=== PATIENT | female | born 1980 | race Caucasian/White ===

== ENCOUNTER 2018-03-29 16:54 | Emergency (ER) | payer BC, OTHER ==
--- NOTE | 2018-03-29 17:06 | PDOC ---
Rapid Medical Evaluation Chief Complaint: Pain, Acute Time Seen by Provider: 03/29/18 17:03 Medical Evaluation: Allergies Allergy/AdvReac Type Severity Reaction Status Date / Time No Known Allergies Allergy Verified 03/29/18 17:02 03/29/18 17:03 Pt c/o: 8 weeks , lower abd cramping, intermmitent spotting x 4 weeks, had u/s last week ( normal) Pt on brief exam: vss Pt ordered for: cbc, comp, type and screen, beta hcg, preg u/s, ua, ucx pt to proceed to the ED Discharge Disposition - Diagnosis Abdominal pain - Referrals - Patient Instructions - Post Discharge Activity
[2018-03-29 17:07] VITALS: BMI 30.6
[2018-03-29 17:27] LABS: BASO % 0.8 % (0-2.0); EOS % 1.1 % (0-4.5); HEMATOCRIT 37.3 % (32.4-45.2); HEMOGLOBIN 13.2 GM/dL (10.7-15.3); LYMPH % 13.8 % (8-40); MCH 33.2 pg (25.7-33.7); MCHC 35.4 g/dl (32.0-36.0); MEAN CELL VOLUME 93.7 fl (80-96); MEAN PLT VOLUME 9.4 fl (7.5-11.1); MONO % 5.1 % (3.8-10.2); NEUT % 79.2 % (42.8-82.8); PLATELET COUNT 221 K/MM3 (134-434); RBC 3.99 M/mm3 (3.60-5.2); RDW 13.2 % (11.6-15.6)
[2018-03-29 18:06] LABS: ALK PHOS 17 U/L (45-117); ANION GAP 10 MMOL/L (8-16); BILIRUBIN,TOTAL 0.4 mg/dL (0.2-1); BLOOD UREA NITROGEN 12 mg/dL (7-18); CALCIUM 8.7 mg/dL (8.5-10.1); CHLORIDE 101 mmol/L (98-107); CO2 25 mmol/L (21-32); CREATININE 0.5 mg/dL (0.55-1.3); GLUCOSE,RANDOM 76 mg/dL (74-106); POTASSIUM 3.6 mmol/L (3.5-5.1); SGOT/AST 18 U/L (15-37); SGPT/ALT 28 U/L (13-61); SODIUM 136 mmol/L (136-145); TOT PROT 7.4 g/dl (6.4-8.2)
--- NOTE | 2018-03-29 18:08 | PDOC ---
History of Present Illness - General Chief Complaint: Pain, Acute Stated Complaint: 9 WEEKS WITH ABD PAIN Time Seen by Provider: 03/29/18 17:03 History Source: Patient Exam Limitations: Clinical Condition - History of Present Illness Initial Comments: 03/29/18 18:04 Patient LMP January 21 with no significant past medical history presenting for evaluation of cramping lower abdominal pain with vaginal spotting which has been intermittent for a month now but has been persistent and last 3 days. Patient was seen a week ago by her [facility] and ultrasound was normal by reported she was told by the nurse to have herself checked out for the persistent spotting due to history of miscarriage. Patient reported no more abdominal pain now and only see black spots when she wipes from using the bathroom. Patient denies any other symptoms Timing/Duration: other (3 days) Past History - Past Medical History Allergies/Adverse Reactions: Allergies Allergy/AdvReac Type Severity Reaction Status Date / Time No Known Allergies Allergy Verified 03/29/18 17:02 COPD: No - Immunization History Immunization Up to Date: Yes - Suicide/Smoking/Psychosocial Hx Smoking History: Never smoked Information on smoking cessation initiated: No Hx Alcohol Use: No Drug/Substance Use Hx: No Review of Systems - Review of Systems Able to Perform ROS?: Yes Is the patient limited [place] proficient: No Constitutional: No: Chills, Fever, Weakness Respiratory: No: Symptoms reported Cardiac (ROS): No: Symptoms Reported ABD/GI: No: Symptoms Reported, Nausea, Vomiting : Yes: Other (vaginal spotting). No: Burning, Dysuria, Discharge, Flank Pain , Urgency All Other Systems: Reviewed and Negative *Physical Exam - Vital Signs Last Vital Signs Temp Pulse Resp BP Pulse Ox 99.3 F 81 16 130/79 100 03/29/18 17:04 03/29/18 17:04 03/29/18 17:04 03/29/18 17:04 03/29/18 17:04 - Physical Exam Comments: 03/29/18 18:18 GENERAL: Well developed, well nourished. Awake and alert. No acute distress. CARDIOVASCULAR: Regular rate and rhythm. No murmurs, rubs, or gallops. Distal pulses are 2+ and symmetric. PULMONARY: No evidence of respiratory distress. Lungs clear to auscultation bilaterally. No wheezing, rales or rhonchi. ABDOMINAL: Soft. Non-tender. Non-distended. No rebound or guarding. No organomegaly. Normoactive bowel sounds. : scant amount of non-malodorous discharge in vaginal vault. no blood in vaginal vault. cervical os closed. no CMT SKIN: Warm and dry. No rashes. NEUROLOGICAL: Alert, awake, appropriate. Gait is normal without ataxia. PSYCHIATRIC: Cooperative. Good eye contact. Appropriate mood ED Treatment Course - LABORATORY CBC & Chemistry Diagram: 03/29/18 17:20 03/29/18 17:20 - ADDITIONAL ORDERS Additional order review: 03/29/18 17:20 RBC 3.99 MCV 93.7 MCHC 35.4 RDW 13.2 MPV 9.4 Neutrophils % 79.2 Lymphocytes % 13.8 Monocytes % 5.1 Eosinophils % 1.1 Basophils % 0.8 Medical Decision Making - Medical Decision Making 03/29/18 18:20 Patient LMP January 21 presenting with complaint of intermittent crampy lower abdominal pain and vaginal spotting. Patient reported no abdominal pain now. Clinical exam unremarkable for vaginal bleeding or abdominal pain. CBC, CMP, urine labs and beta hCG ordered. pelvic ultrasound ordered. Symptoms threatened AB and patient be discharged home with [facility] follow-up in 48 hours for repeat beta hCG if normal labs and normal ultrasound. 03/29/18 18:49 labs unremarkable. beta hcg [id number]. official ultrasound shows live IUP with CRL of 1.97cm c/w 8.4wks with pos FH of 171. patient stable for discharge for follow -up in 48hrs after type and screen labs. plan discussed with patient and pt agrees with plan 03/29/18 19:00 Patient OB is in [facility] and report she will follow-up with her OB in 2 days for the repeat beta hcg 03/29/18 20:08 patient blood type A-pos. pt stable for discharge *DC/Admit/Observation/Transfer Diagnosis at time of Disposition: Threatened Abdominal pain Qualifiers: Abdominal location: unspecified location Qualified Code(s): R10.9 - Unspecified abdominal pain - Discharge Dispostion Disposition: HOME Condition at time of disposition: Stable Decision to Admit order: No - Referrals Referrals: [facility] [Non Staff, Medical] - - Patient Instructions Printed Discharge Instructions: Threatened Additional Instructions: take tylenol as needed for pain. no motrin for pain because of . follow -up with our OB in [facility] in 2 days as discussed for repeat beta hcg. come back to the ER if worsening vaginal bleeding or abdominal pains - Post Discharge Activity
[2018-03-29 18:12] LABS: URINE APPEARANCE CLEAR; URINE BILIRUBIN NEGATIVE (<2.0 mg/dL); URINE COLOR YELLOW; URINE GLUCOSE (UA) NEGATIVE (NEGATIVE); URINE KETONE TRACE (NEGATIVE); URINE LEUK ESTERASE NEGATIVE (NEGATIVE); URINE NITRITE NEGATIVE (NEGATIVE); URINE PROTEIN NEGATIVE (NEGATIVE); URINE UROBILINOGEN NEGATIVE mg/dL (0.2-1.0)
[2018-03-29 19:56] VITALS: BP 125/73; PULSE 80; TEMP 98.4
== END 2018-03-29 19:55 | disposition home or self-care (01) ==
LOC: JER 16:54
DX: O26.891 Other specified pregnancy related conditions, first trimester (principal); O20.0 Threatened abortion; Z3A.08 8 weeks gestation of pregnancy
CPT/HCPCS: 36415; 76801-TC; 80053; 81003; 84702; 85025; 86850; 86900; 86901; 87086; 99283-25